=== PATIENT | male | born 1945 | race Caucasian/White ===

== ENCOUNTER 2018-08-22 10:23 | Inpatient (IN) | payer MEDICARE, OTHER ==
[~2018-08-22] VITALS: Ht 193 cm; Wt 124.0 kg
[2018-10-01] VITALS (11 sets, daily range): BP systolic 125–147; BP diastolic 74–93; PULSE 55–82; TEMP 98–98.2
[2018-10-01] MEDS ORDERED: GLUCOSAMINE CHO1 TAB PO (05:55)
[2018-10-01] MEDS ORDERED: ASPIRIN E.C. 8181 MG PO (05:56)
[2018-10-01] MEDS ORDERED: NATURE'S BLEND600 M2 PO (05:56)
[2018-10-01] MEDS ORDERED: OMEGA-3 1000 MG1 CAP PO (05:57)
--- NOTE | 2018-10-01 11:37 | NUR ---
PT TO ROOM 342 PER BED WITH REPORT FROM TASIA CHAO [email or web address]. PT DROWSEY BUT AROUSED TO VERBAL. LUNGS CLEAR, ROBOT INCISIONS X6 CDI CLOSED WITH SWIFTSET, ROSA DRAIN TO COMPRESSION WITH NO DRAINAGE IN CONTAINER, BOYER CATHETER TO DD WITH CLEAR YELLOW URNINE IN BAG.
--- NOTE | 2018-10-01 19:04 | NUR ---
Reportto Concepción CHAO.
--- NOTE | 2018-10-02 01:31 | NUR ---
Dressing to ROSA drain site noted to be saturated with bloody drainage. Old dressing removed and site cleansed. New dressing applied. ROSA drain noted to be draining bloody drainage frequently. 6 lap sites all intact and remain free from drainage. Patient denies the need for Tramadol at this time. Bedrest ordered for tonight. Catheter in place. at bedside. Will continue to monitor patient.
[2018-10-02 03:42] VITALS: BP 127/79; PULSE 70; TEMP 98.7
[2018-10-02 06:47] LABS: BASO % 0.3 % (0.0-2.0); EOS % 0.2 % (0-4.0); GRAN # 7.8 (1.4-6.5); GRAN % 82.5 % (42.2-75.2); HEMATOCRIT 40.7 % (42.0-52.0); HEMOGLOBIN 13.7 g/dl (13.5-18.0); LYMPH # 0.8 (1.2-3.4); LYMPH % 8.3 % (20.0-51.0); MEAN CELL VOLUME 88 fl (80.0-100.0); MEAN CORPUSCULAR HEMOGLOBIN 30 pg (27.0-31.0); MEAN CORPUSCULAR HGB CONC 34 g/dl (33.0-37.0); MONO # 0.8 (0.1-0.6); MONO % 8.3 % (1.7-9.3); PLATELET COUNT 105 K/mm3 (130-400); RED BLOOD COUNT 4.65 M/mm3 (4.20-5.60); REDCELL DISTRIBUTION WIDTH-CV 12.6 % (11.5-14.5)
[2018-10-02 07:15] VITALS: BP 141/81; PULSE 70; TEMP 99.7
--- NOTE | 2018-10-02 09:24 | NUR ---
Patient resting in bed. He was up and ambulated the halls. He did well. Pardeep drain to bulb suction, new gauze dressing applied around drain & fresh linens provided, bleeding noted. Lap site edges well approximated. Ruiz DC per orders. Urinal provided for accurate I&O. Iv to INt. He is tolerating clears. No N/V. Patient supportive at bedside. rounded this am.
--- NOTE | 2018-10-02 09:59 | NUR ---
DANA met with the patient and patient's , Hanna, to discuss discharge plan. The patient lives in [place] with his . He reports independence with ADLs and does not have any DME. The patient's PCP is Dr. Andrés Mead and he receives his medications at [facility]. He reports no difficulties obtaining his meds. The patient does not have advanced directives, but he states that he is in the process of completing them. The patient plans to return home with his upon discharge. No additional needs at this time.
--- NOTE | 2018-10-02 11:02 | NUR ---
First visit from the field court researcher. No needs right now.
[2018-10-02 12:35] VITALS: BP 137/72; PULSE 68; TEMP 97.6
--- NOTE | 2018-10-02 15:04 | NUR ---
Patient resting in bed. Family at bedside. He ambulated halls again & has been in the bathroom & has not yet been able to void. bladder scanned 210mls noted. will monitor voiding. po intake encourgaed. ROSA drain gauze drg changed again, bloody drainge noted. patient continues to have elevate ROSA drain output. Patient diet progressed to general diet, he reports passing flatus.
[2018-10-02 17:20] VITALS: BP 120/72; PULSE 59; TEMP 97.8
[2018-10-02 19:47] VITALS: BP 124/74; PULSE 65; TEMP 97.6
--- NOTE | 2018-10-02 19:51 | NUR ---
Patient continues to have alot of drainge from ROSA drain- noted to be very bloody. was notifed-labs to be checked & patient back to bedrest. also notifed this eveing after even more drainge noted & stat H&H ordered. Patient is passing flatus, tolerating diet. Voided concentrated urine. Int. Vss. Bedside report to Sunni
[2018-10-02 20:06] LABS: HEMATOCRIT 35.1 % (42.0-52.0)
--- NOTE | 2018-10-02 23:03 | NUR ---
Lab results resulted and Dr. Chu updated. He stated to ensure that lab orders are in for tomorrow morning and continue to monitor patient. Patient and his updated on lab results. Patient resting well at this time. ROSA continues to drain, and dressing has minimal drainage. Will continue bed rest tonight per orders. Will continue to monitor.
[2018-10-02 23:55] VITALS: BP 135/83; PULSE 74; TEMP 97.7
[2018-10-03 04:33] VITALS: BP 125/71; PULSE 77; TEMP 98.1
--- NOTE | 2018-10-03 05:54 | NUR ---
ROSA drain continues to drain bloody fluid. Hemoglobin to result this morning. Patient has followed bed rest orders throughout the night. Utilizes urinal. at bedside.
[2018-10-03 07:12] LABS: BASO % 0.3 % (0.0-2.0); EOS # 0.1 (0.0-0.7); EOS % 1.4 % (0-4.0); GRAN # 5.6 (1.4-6.5); GRAN % 76.6 % (42.2-75.2); HEMOGLOBIN 11.3 g/dl (13.5-18.0); LYMPH # 0.9 (1.2-3.4); LYMPH % 11.7 % (20.0-51.0); MEAN CELL VOLUME 88 fl (80.0-100.0); MEAN CORPUSCULAR HEMOGLOBIN 30 pg (27.0-31.0); MEAN CORPUSCULAR HGB CONC 34 g/dl (33.0-37.0); MEAN PLATELET VOLUME 11.1 fl (7.4-10.4); MONO # 0.7 (0.1-0.6); MONO % 9.6 % (1.7-9.3); PLATELET COUNT 139 K/mm3 (130-400); RED BLOOD COUNT 3.81 M/mm3 (4.20-5.60); REDCELL DISTRIBUTION WIDTH-CV 12.9 % (11.5-14.5)
[2018-10-03 07:23] LABS: CREATININE, serum 1.05 (0.66-1.25); POTASSIUM 4.4 mmol/L (3.4-5.0)
[2018-10-03 07:24] LABS: HEMATOCRIT 33.6 % (42.0-52.0)
[2018-10-03 07:36] VITALS: BP 130/73; PULSE 68; TEMP 98.2
--- NOTE | 2018-10-03 10:00 | NUR ---
Patient is sitting up in bed. He is doing well this morning. Denies nausea. Minimal complaints of pain. This morning they had a hard time getting the bulb to stay to suction. I got a clot out of the tube and now it is staying to suction now. He is not having as much out as previous shift. No other changes at this time. His is at bedside. No other changes at this time. Call light within reach.
[2018-10-03 11:50] VITALS: BP 134/72; PULSE 83; TEMP 98.6
[2018-10-03 16:13] VITALS: BP 135/76; PULSE 83; TEMP 98.5
--- NOTE | 2018-10-03 18:30 | NUR ---
Patient has been doing ok today. No bleeding from ROSA site. He only had 90ml from ROSA drain this shift. He is tolerating eating and drinking today. at bedside. No other changes at this time. Call light within reach.
[2018-10-03 19:38] VITALS: BP 130/77; PULSE 92; TEMP 98.9
[2018-10-03 23:08] VITALS: BP 127/73; PULSE 84; TEMP 98.8
--- NOTE | 2018-10-03 23:54 | NUR ---
Dr. Chu in to see patient at beginning of shift and stated it was okay for him to get up and around. Patient and notified. Patient has been to the bathroom a couple times feeling as if he needs to have a bowel movement, but has not had one yet. ROSA drain site dressing changed. Continues to drain bloody fluid, but has slowed down a lot since yesterday. Patient denies pain, but complains of discomfort d/t not being able to have a bowel movement. Will continue to monitor.
[2018-10-04 03:15] VITALS: BP 120/78; PULSE 72; TEMP 97.5
--- NOTE | 2018-10-04 05:41 | NUR ---
Patient up several times at the beginning of the night to try to have a bowel movement, with no success. States he had a lot of gas and he feels much better. ROSA drain has 55ml out so far this shift which is considerably less than previous shifts. Drain site has minimal drainage to gauze. Will continue to monitor.
[2018-10-04 07:44] VITALS: BP 128/74; PULSE 92; TEMP 97.9
--- NOTE | 2018-10-04 11:00 | NUR ---
Patient has been doing well this am. He has been up walking the hallways. He had 2 soft formed medium bowel movements. He is passing flatus without issues. Minimal complaints of pain, no complaints of nausea. at bedside. Patient is planning to discharge later today. No other changes at this time. Call light within reach.
[2018-10-04 11:09] VITALS: BP 139/82; PULSE 70; TEMP 98.1
[2018-10-04 16:34] VITALS: BP 131/77; PULSE 72; TEMP 98.4
[2018-10-04] MEDS ORDERED: NORCO 325 MG-51 TAB PO (17:38)
[2018-10-04] MEDS ORDERED: COLACE 100100 MG/CAP PO (17:39)
--- NOTE | 2018-10-04 18:30 | NUR ---
ROSA drain discontinued at this time. Placed folded 4x4's and tegaderm to drainage site. Explained to leave dressing on for 24-48 hours and if having drainage after drain discontinued may use bandaids. Patient is discharging home after eating supper. Discharge instructions discussed with patient and his . INT discontinued at this time. Copies of discharge instructions sent with patient. packed up belongings. Explained he has a prescription to get filled for pain medications and stool softners. He said he probably won't get the pain medications filled. Patient is going to eat supper and than call to be walked out.
== END 2018-10-04 19:10 | disposition home or self-care (01) | DRG 658 ==
LOC: INPTSU 10-01 05:08 → SURG 10-01 07:30
PROVIDERS: Urology; ADMIT Urology
PROC: 0TB04ZZ Excision of Right Kidney, Percutaneous Endoscopic Approach (ICD-10-PCS; principal; 2018-10-03)
PROC: 8E0W4CZ Robotic Assisted Procedure of Trunk Region, Percutaneous Endoscopic Approach (ICD-10-PCS; 2018-10-03)
DX: C64.1 Malignant neoplasm of right kidney, except renal pelvis (principal); N40.0 Benign prostatic hyperplasia without lower urinary tract symptoms
CPT/HCPCS: A4314; A9284; J0330; J1100; J1650; J1885; J2250; J2405; J2704; J2710; J2795; J3010; J7120